=== PATIENT | female | born 1960 | race Caucasian/White ===

== ENCOUNTER 2020-04-06 17:56 | Outpatient (CLI) | payer BC, SELFPAY ==
--- NOTE | ~2020-04-06 | XR_ITS ---
EXAMINATION: XR thoracic spine 3V EXAM DATE: 04/06/2020 18:30 INDICATION: Chronic back pain. TECHNIQUE: Frontal and lateral projections of the thoracic spine as well as lateral swimmers projecti on of the upper thoracic spine for interpretation. There is no prior study for comparison. FINDINGS: There is mild thoracic spondylosis. Minimal mid thoracic dextrocurvature. The vertebral bod ies are aligned in the AP dimension. There are no bony erosions identified. Paraspinal soft tissue is unremarkable. IMPRESSION: Mild thoracic spondylosis. Reviewed, dictated and finalized at location A. IMPRESSION: Mild thoracic spondylosis.
--- NOTE | ~2020-04-06 | XR_ITS ---
EXAMINATION: XR lumbar spine 2-3V EXAM DATE: 04/06/2020 18:30 INDICATION: Chronic low back pain. TECHNIQUE: Lumber spine frontal, lateral, lateral L5-S1 projections for interpretation. There is no prior study for comparison. FINDINGS: There is mild lumbar dextrocurvature, positional versus mild scoliosis. There is about 5 m m anterolisthesis L5 on S1 without spondylolysis suspected. There is mild to moderate lumbar facet ar thropathy. The vertebral bodies are otherwise aligned. Mild disc disease at L1-2. Sacrum, sacroiliac joints, sacral arcuate lines are intact. Paraspinal soft tissue is unremarkable. IMPRESSION: 1. L5-S1 grade 1 anterolisthesis. 2. Mild to moderate facet arthropathy. 3. Mild dextrocurvature, could be scoliosis. Reviewed, dictated and finalized at location A.
== END 2020-04-06 17:57 | disposition home or self-care (01) ==
PROVIDERS: PCP Nurse Practitioner Family; Visit Provider Nurse Practitioner Family
DX: G89.29 Other chronic pain (principal); M43.17 Spondylolisthesis, lumbosacral region; M47.897 Other spondylosis, lumbosacral region; M47.815 Spondylosis without myelopathy or radiculopathy, thoracolumbar region
CPT/HCPCS: 72072; 72100

== ENCOUNTER 2020-04-23 04:32 | Emergency (ER) | payer BC, SELFPAY ==
--- NOTE | ~2020-04-23 | CT_ITS ---
EXAMINATION: CT thoracic spine wo con EXAM DATE: 04/23/2020 06:32 INDICATION: Syncope, fall, back pain . TECHNIQUE: Spiral CT thoracic spine wo con was performed thoracic spine Axial, coronal and sagittal images were reviewed. The dose-length product (DLP) for this examination was 1022.03 mGy-cm. The ex posure was tailored according to patient size (auto mA exposure control), and iterative reconstructio n (ASIR) was used as additional dose reduction technique. Correlation is made to thoracic x-ray 04/06. FINDINGS: There is mild thoracic disc disease. Mild loss of mid and lower thoracic vertebral body hei ghts without acute fracture line. Mild thoracic facet arthropathy. No evidence of significant central canal stenosis. Moderate to severe left neural foraminal stenosis at T7-8. Otherwise no more than mi ld to moderate thoracic neural foraminal stenosis. 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 Splenule. IMPRESSION: Mild thoracic spondylosis. Reviewed, dictated and finalized at location A. PRESIDENT QUALITY ASSURANCE IMPRESSION: Mild thoracic spondylosis.
--- NOTE | ~2020-04-23 | XR_ITS ---
EXAMINATION: XR chest 2V EXAM DATE: 04/23/2020 06:29 INDICATION: Syncope. TECHNIQUE: Frontal and lateral projections of the chest obtained and reviewed. Comparison is made to prior examination from 12/29/2018. FINDINGS: The lungs are clear. There are no pleural effusions. The cardiomediastinal silhouette is within normal limits. There is no pneumothorax suspected. The bones and soft tissues are unremarkab le. IMPRESSION: No acute cardiopulmonary findings. Reviewed, dictated and finalized at location A. YPOP MACHINE OPERATOR
--- NOTE | ~2020-04-23 | CT_ITS ---
EXAMINATION: CTA chest PE protocol DATE: 04/23/2020 07:57 INDICATION: Syncope. TECHNIQUE: Computed tomography angiography (CTA) of the chest was performed with 100 mL Omnipaque-350 intravenous contrast timed to evaluate the pulmonary arteries. Coronal maximum intensity projection 3D-reconstructions were created by the technologist. Automated exposure control and iterative reconst ruction technique were employed. The dose-length product was 287.62 mGy-cm. COMPARISON: Chest 2 views 04/23/2020 FINDINGS: The lungs demonstrate mild atelectasis. There are a few scattered nodules measuring up to 3 mm, likely benign. No pleural effusion. There is an aberrant right subclavian artery. The heart size is normal. There are coronary artery calcifications. No pericardial effusion. There is no pulmonary embolus. There is mild thoracic spondylosis. IMPRESSION: 1. No pulmonary embolus. Reviewed, dictated and finalized at location B. MAKING REHABILITATION CONSULTANT IMPRESSION: 1. No pulmonary embolus.
--- NOTE | ~2020-04-23 | CT_ITS ---
EXAMINATION: CT brain wo con, CT cervical spine wo con EXAM DATE: 04/23/2020 06:31 (accession [id number]), 04/23/2020 06:32 (accession [id number]) INDICATION: Syncope, weakness . Neck and back pain. TECHNIQUE: Spiral CT of the head was performed without contrast. Axial, coronal and sagittal images were reviewed. Spiral CT of the cervical spine was performed without contrast. Axial images were rev iewed. Coronal and sagittal reformatted images were also reviewed. The dose-length product (DLP) fo r this examination was 605.33 (accession [id number]), 222.02 (accession [id number]) mGy-cm. The exposure was tailored according to patient size, and iterative reconstruction (ASIR) was used as additional dose reduction technique. Comparison is made to prior examination from 10/29/2014. FINDINGS: HEAD CT: There is no acute intraparenchymal hemorrhage. No evidence of intraparenchymal brain mass l esion. No evidence of acute infarction. There is no mass effect or midline shift. There is no obstru ctive hydrocephalus suspected. There are no extra-axial collections. There are no acute calvarial f ractures. The orbits are unremarkable. Soft tissue is unremarkable. The visualized sinuses and mas toid air cells are well aerated. CERVICAL CT: There is no evidence of acute cervical fracture. The odontoid process is intact. Pre- dens space is normal. Prevertebral soft tissue is normal. There are no soft tissue abnormalities id entified. There is no disc space widening or traumatic vertebral body subluxation suspected. There is mild to moderate cervical spondylosis. A detailed level by level evaluation of spondylosis can be added as addendum if requested. IMPRESSION: 1. No acute intracranial findings or cervical fracture. Reviewed, dictated and finalized at location A. PHONE ORDER CLERK ROOM SERVICE IMPRESSION: 1. No acute intracranial findings or cervical fracture.
[2020-04-23 04:35] VITALS: BP 110/56; PULSE 82; RESP 18; TEMP 36.1; O2SAT 100
--- NOTE | 2020-04-23 04:52 | ED.SYNCOPE ---
HPI - Syncope General Chief Complaint: Syncope <Mariza Mora MD - Last Filed: 04/23/20 07:23> Stated Complaint: passed out <Mariza Mora MD - Last Filed: 04/23/20 07:23> Time Seen by Provider: 04/23/20 04:52 <Mariza Mora MD - Last Filed: 04/23/20 07:23> Source: patient <Mariza Mora MD - Last Filed: 04/23/20 07:23> Mode of arrival: wheelchair <Mariza Mora MD - Last Filed: 04/23/20 07:23> Limitations: no limitations <Mariza Mora MD - Last Filed: 04/23/20 07:23> History of Present Illness HPI narrative: Patient is a 60-year-old female with a history of hypertension, hypothyroidism who presents for evaluation of syncopal events. Patient states that she was walking through a bedroom door when she suddenly felt quite lightheaded, dizzy and weak. Patient then fell backwards into the door. She denies hitting her head, she states she may have lost consciousness. She states her helped her get up, she tried to walk again and then passed out again into the hallway. No seizure-like activity. No urinary incontinence or tongue biting. Patient was not confused when she awakened. Patient states she feels diffusely weak without any focal weakness or numbness. She denies any associated chest pain or shortness of breath. She reports she has been congested with a dry cough over the course of the week and has been generally feeling unwell. No history of syncope in the past. No recent medication changes. She is denying any neck pain, she does report middle back pain. <Mariza Mora MD - Last Filed: 04/23/20 07:23> Related Data Home Medications: Home Medications Medication Instructions Recorded Confirmed atorvastatin 04/23/20 clonidine HCl 04/23/20 diclofenac sodium PO 04/23/20 furosemide 04/23/20 levothyroxine 04/23/20 levothyroxine [Euthyrox] 04/23/20 lisinopril 04/23/20 meloxicam 04/23/20 metformin mg 04/23/20 omeprazole 04/23/20 <Mariza Mora MD - Last Filed: 04/23/20 07:23> Allergies/Adverse Reactions: Allergies Allergy/AdvReac Type Severity Reaction Status Date / Time No Known Allergies Allergy Unverified 04/23/20 04:39 <Mariza Mora MD - Last Filed: 04/23/20 07:23> Review of Systems Review of Systems: Narrative: CONSTITUTIONAL: Denies fever, chills, or sweats. EYES: Denies visual changes, redness, or discharge. ENT: Reports rhinorrhea and congestion CARDIOVASCULAR: Denies chest pain, palpitations, or edema. RESPIRATORY: Denies cough or dyspnea. GASTROINTESTINAL: Denies abdominal pain, nausea, vomiting, or diarrhea. GENITOURINARY: Denies dysuria or hematuria. SKIN: Denies rash or itching. MUSCULOSKELETAL: Reports middle back pain NEUROLOGIC: Denies headache, numbness, or weakness. <Mariza Mora MD - Last Filed: 04/23/20 07:23> [facility] Past Medical History Medical History: Medical History Hyperlipidemia Hypertension Hypothyroidism Parotid tumor Sciatica <Mariza Mora MD - Last Filed: 04/23/20 07:23> Social History Social History: Social History (Updated 04/23/20 @ 05:13 by Mariza Mora MD) Smoking status: Never smoker Alcohol intake: never Substance use: never Living arrangements: with family Gender identity (if verbalized by the patient): Female Sexual Orientation (if Verbalized by the Patient): Straight or Heterosexual <Mariza Mora MD - Last Filed: 04/23/20 07:23> Exam Narrative: Exam Narrative: GENERAL: Awake, alert, conversant HEAD: Normocephalic, atraumatic. EYES: PERRLA and EOMI. ENT: Nares clear, no rhinorrhea or epistaxis. Mucous membranes moist. NECK: Supple. CHEST: No respiratory distress, breathing even and non labored HEART: Regular rate, sinus rhythm ABDOMEN:Non distended, non tender EXTREMITIES: Normal range of motion. No edema. SKIN: Warm, dry, no rash. NEURO:No
--- NOTE | 2020-04-23 05:05 | ECG_ITS ---
Measurements Intervals [place] Rate: 80 P: 40 ME: 144 QRS: 10 QRSD: 74 T: 34 QT: 375 QTc: 434 Interpretive Statements SINUS RHYTHM LOW QRS VOLTAGE IN PRECORDIAL LEADS BORDERLINE T WAVE ABNORMALITY- ANTERIOR LEADS BASELINE ARTIFACT- I, II, III, AVR, AVL, AVF, V1, V5 BORDERLINE ECG Electronically Signed On 04-23-2020 8:49:30 BLOCK SORTER by Mac Escamilla D.O.
[2020-04-23 05:09] LABS: Glucose Point of Care 134 (65-105)
[2020-04-23] MEDS: SODIUM CHLORIDE 0.9% IV 1,000 ML 999 ML IV CONT (05:27)
[2020-04-23 05:46] LABS: Basophils Percent Auto 0.5 % (0.2-1.2); Eosinophils Absolute Auto 0.7 K/mm3 (0-0.3); Eosinophils Percent Auto 12.5 % (0-4.4); Hematocrit 37.2 % (37.0-47.0); Hemoglobin 12.1 g/dL (12.0-15.0); Immature Granulocyte Absolute 0.09 K/mm3 (0.00-0.031); Immature Granulocyte Percent A 1.6 % (0-0.5); Lymphocytes Absolute Auto 1.28 K/mm3 (0.9-3.2); Lymphocytes Percent Auto 22.6 % (18.3-44.2); Mean Corpuscular HGB Conc 32.5 g/dl (32-36); Mean Corpuscular Hemoglobin 28.2 pg (26-34); Mean Corpuscular Volume 86.7 fl (80-100); Mean Platelet Volume 10.1 fl (7.4-10.4); Monocytes Absolute Auto 0.6 K/mm3 (0.1-0.6); Monocytes Percent Auto 10.6 % (2.6-8.5); Neutrophils Percent Auto 52.2 % (45.5-73.1); Platelet Count Result 190 k/mm3 (150-375); Red Blood Count 4.29 M/mm3 (4.2-5.4); Red Cell Distribution Width 13.5 % (11.5-14.5); White Blood Count 5.7 K/mm3 (4.5-10.0)
[2020-04-23 05:57] LABS: Anion Gap 8 mmol/L (8-16); Blood Urea Nitrogen 21 mg/dL (7-17); Carbon Dioxide 29 mmol/L (22-30); Chloride 101 mmol/L (98-107); Estimated CRCL calculation 58 ml/min; Estimated Glomerular Filt Rate > 60; Glucose 140 mg/dL (65-105); Potassium 4.3 mmol/L (3.4-5.0); Sodium 138 mmol/L (137-145)
[2020-04-23 06:00] LABS: INR 0.9; Prothrombin Time 12.5 Seconds (11.1-14.7)
[2020-04-23 06:01] LABS: Partial Thromboplastin Time 26.3 SECONDS (22.3-36.8)
[2020-04-23 06:03] LABS: D Dimer 0.69 ug/mL (<0.48)
[2020-04-23 06:09] LABS: NT Pro B Type Natriuretic Pept 74 PG/ML (5-100); Troponin I < 0.012 ng/mL (0.000-0.034)
[2020-04-23 06:26] LABS: Add Urine Microscopic? NO; Appearance Urine Clear (Clear); Bilirubin Urine Negative (Negative); Blood Urine Negative (Negative); Color Urine Straw (Yellow); Glucose Urine UA Negative (Negative); Ketones Urine Negative (Negative); Leukocyte Esterase Ur Negative LEU/UL (Negative); Nitrate Urine Negative (Negative); Protein Urine Negative (Negative); Specific Grav Ur 1.013 (1.001-1.035); Urobilinogen Urine Negative mg/dL (<2.0)
--- NOTE | 2020-04-23 07:30 | PC.NURSE ---
Pt wheeled to restroom by . Xray here to take pt.
[2020-04-23 07:53] VITALS: BP 115/67; PULSE 78; RESP 17; O2SAT 100
[2020-04-23 08:59] LABS: Troponin I < 0.012 ng/mL (0.000-0.034)
== END 2020-04-23 10:33 | disposition home or self-care (01) ==
PROVIDERS: Emergency Medicine; Emergency Provider Emergency Medicine; PCP Nurse Practitioner Family
DX: R55 Syncope and collapse (principal); I10 Essential (primary) hypertension; E03.9 Hypothyroidism, unspecified; E78.5 Hyperlipidemia, unspecified; M47.814 Spondylosis without myelopathy or radiculopathy, thoracic region
CPT/HCPCS: 36415; 70450; 71046; 71275; 72125; 72128; 80048; 81003; 82948; 83880; 84443; 84484; 85025; 85380; 85610; 85730; 93005; 96360; 96361; 99284; J7030; Q9967

== ENCOUNTER 2020-05-19 08:17 | Outpatient (CLI) | payer BC, SELFPAY ==
--- NOTE | ~2020-05-19 | MR_ITS ---
EXAMINATION: MR lumbar spine wo con DATE: 05/19/2020 10:49 INDICATION: Chronic back pain TECHNIQUE: Magnetic resonance imaging (MRI) of the lumbar spine was performed without intravenous con trast. Sequences included sagittal T2-weighted FSE, sagittal T2-weighted FS FSE, sagittal T1-weighted FSE, and axial T2-weighted FSE. COMPARISON: Lumbar spine radiographs dated 04/06/2020 FINDINGS: S1 is partially lumbarized on the right. Approximately 15 degrees thoracolumbar dextroscoliosis. 5 mm anterolisthesis L5 on S1. Chronic mild anterior wedging at T11 and T12 with 20% anterior vertebral b brady height loss. Small Schmorl's node along the inferior endplate of T11. Lumbar vertebral body heigh ts are normal. Mild fibrovascular degenerative endplate changes at the inferior aspect of T12. Marrow signal is otherwise normal. Mild disc height loss at T10-T11, T11-T12 and L5-S1. The conus medullari s terminates at L1-L2. There is normal signal in the caudal spinal cord. Paravertebral soft tissues a re unremarkable. The following disc levels are specifically discussed: T12-L1: The disc does not extend beyond the endplate margin. There is mild bilateral facet joint oste oarthritis. There is no neural foraminal stenosis. There is no central canal stenosis. L1-L2: The disc does not extend beyond the endplate margin. There is mild bilateral facet joint osteo arthritis. There is no neural foraminal stenosis. There is no central canal stenosis. L2-L3: Very small right subarticular zone disc protrusion. There is mild bilateral facet joint osteoa rthritis. There is minimal bilateral neural foraminal stenosis. There is minimal central canal stenos is. L3-L4: The disc does not extend beyond the endplate margin. There is mild bilateral facet joint osteo arthritis. There is no neural foraminal stenosis. There is no central canal stenosis. L4-L5: The disc does not extend beyond the endplate margin. There is moderate bilateral facet joint o steoarthritis. There is mild bilateral neural foraminal stenosis. There is no central canal stenosis. L5-S1: Disc is bulging. There is severe bilateral facet joint osteoarthritis. There is mild bilateral neural foraminal stenosis. There is mild central canal stenosis with mild stenosis at the left and r ight lateral recesses. IMPRESSION: 1. Mild thoracolumbar dextroscoliosis. 2. Mild to moderate lumbar spondylosis with 5 mm anterolisthesis L5 on S1. Reviewed, dictated and finalized at location A. AL SECURITY SPECIALIST
--- NOTE | ~2020-05-19 | DEXA_ITS ---
Bone Density Report Name: Ying Colvin Age: 60 Sex: Female Ethnicity: White Date of : 1960 Indication: postmenopausal; parental hip fracture; prior fracture; Referring Provider: Daniel, Syliva Medrano Study: Bone densitometry was performed. Exam Date: May 19, 2020 Accession number: [id number] Bone Density: Region BMD T-score Z-score Classification AP Spine (L1-L4) 0.910 -1.2 0.1 Osteopenia Femoral Neck (Left) 0.599 -2.3 -1.0 Osteopenia Total Hip (Left) 0.781 -1.3 -0.4 Osteopenia Total Hip Bilateral Avg 0.784 -1.3 -0.4 Osteopenia Femoral Neck (Right) 0.666 -1.6 -0.4 Osteopenia Total Hip (Right) 0.785 -1.3 -0.4 Osteopenia World Health Organization criteria for BMD impression classify patients as: Normal (T-score at or above -1.0), Osteopenia (T-score between -1.0 and -2.5), or Osteoporosis (T-score at or below -2.5). 10-year Fracture Risk: FRAX not reported because: Prior hip or vertebral fracture Clinical Information Provided by Patient: Have had a previous hip or vertebral fracture Has had a low trauma fracture Parent has had a hip fracture Has used the following medications: Vitamin D, Calcium Patient maximum height was 60 Menopause Age: 57 No regular weight bearing exercise Onset of menses at age 14 Number of children 0 Impression: The patient has low bone mass, based on the Left Femoral Neck T-score. The patient has risk factors, including: parental hip fracture, previous fracture. Discussion: INCREASED RISK OF FRACTURE DUE TO HISTORY OF FRACTURE. The patient's previous fracture puts the patient at high risk of a future fracture. In untreated patients, the risk of osteoporotic fracture increases approximately two-fold for each 1.0 SD decrease in T-score. Low bone density is not the only risk factor for fracture; also consider factors such as patient's age, frailty or poor health, risk of falling, risk of injury, previous osteoporotic fracture, family history of osteoporosis, cigarette smoking, low body weight, etc. Not everyone with a low trauma fracture has osteoporosis; osteomalacia and other metabolic bone disorders should also be considered. Patients who have osteoporosis should be evaluated for specific diseases and conditions (secondary causes) that may cause or contribute to bone loss and fracture risk. National Osteoporosis Foundation (NOF) recommends pharmacologic intervention for patients with a prior hip or vertebral fracture regardless of BMD T-score. The patient should follow a healthful lifestyle (good nutrition with adequate calcium and vitamin D, and appropriate weight-bearing exercise). Follow-Up: Consider a repeat BMD and Vertebral Fracture Assessment (VFA) exam in 2 years or sooner if medically necessary, to reassess this patient's status. Reported by: PAULO on 05/19/2020 8:48:00 AM.
--- NOTE | ~2020-05-19 | MM_ITS ---
EXAMINATION: MM screening wilson BI w pako HISTORY: Screening TECHNIQUE: Craniocaudal and mediolateral oblique 3-D tomosynthesis images were obtained and synthetic 2-D images were generated. CAD analysis was submitted and interpreted. COMPARISON: Comparison to multiple prior studies sequentially, with oldest reviewed study dated 05/16. BREAST PARENCHYMAL COMPOSITION: There are scattered areas of fibroglandular density. FINDINGS: There is a developing cluster of calcifications lower central aspect of the left breast, mi ddle third of the breast. There is no evidence of suspicious mass, calcification, or architectural di stortion to suggest malignancy in the right breast. There has been no suspicious interval change. IMPRESSION: 1. Clustered punctate calcifications lower central left breast. 2. Magnification views are recommended. BI-RADS Category 0: Incomplete: Needs additional imaging evaluation. Reviewed, dictated and finalized at location A. TICS ENGINEERING TEACHER
== END 2020-05-19 08:18 | disposition home or self-care (01) ==
PROVIDERS: PCP Nurse Practitioner Family; Visit Provider Nurse Practitioner Family
DX: Z12.31 Encounter for screening mammogram for malignant neoplasm of breast (principal); E55.9 Vitamin D deficiency, unspecified; M54.9 Dorsalgia, unspecified; M47.817 Spondylosis without myelopathy or radiculopathy, lumbosacral region; M48.07 Spinal stenosis, lumbosacral region; M47.815 Spondylosis without myelopathy or radiculopathy, thoracolumbar region; M48.05 Spinal stenosis, thoracolumbar region; M41.9 Scoliosis, unspecified; R92.8 Other abnormal and inconclusive findings on diagnostic imaging of breast; M85.852 Other specified disorders of bone density and structure, left thigh; M85.851 Other specified disorders of bone density and structure, right thigh
CPT/HCPCS: 72148; 77063; 77067; 77080

== ENCOUNTER 2020-07-03 13:48 | Outpatient (CLI) | payer BC, SELFPAY ==
--- NOTE | ~2020-07-03 | MM_ITS ---
EXAMINATION: MM diagnostic mammo unilat LT HISTORY: Clustered punctate calcifications reported at lower central left breast on 05/19/2020 screeni ng mammogram TECHNIQUE: Additional 3-D ML tomosynthesis images of the breasts were performed and synthetic 2-D sadaf ges were generated. Magnification views of the left breast. CAD analysis was submitted and interprete d. COMPARISON: 05/19/2020bilateral digital screening mammogram 07/11/2016 diagnostic left digital mammogram 06/06/2016 bilateral digital screening mammogram FINDINGS: Subtle microcalcifications are noted in the inner aspect of the lower outer quadrant of the left breast. Similar very subtle microcalcifications are present in retrospect on the 06/06/2016 lef t digital mammogram. As a precaution, ultrasound of the lower outer quadrant left breast is recommend ed to exclude any mass. IMPRESSION: 1. Subtle microcalcifications in the inner aspect of lower outer left breast, largely stable since 2. As a precaution, lower outer quadrant left breast ultrasound correlation is recommended. BI-RADS Category 0: Incomplete: Needs additional imaging evaluation. Reviewed, dictated and finalized at location A. SERVICER IMPRESSION: 1. Subtle microcalcifications in the inner aspect of lower outer left breast, l argely stable since 06/06/2016 2. As a precaution, lower outer quadrant left breast ultrasound correlation is recommended. BI-RADS Category 0: Incomplete: Needs additional imaging evaluation.
== END 2020-07-03 13:49 | disposition home or self-care (01) ==
PROVIDERS: PCP Nurse Practitioner Family; Visit Provider Nurse Practitioner Family
DX: R92.8 Other abnormal and inconclusive findings on diagnostic imaging of breast (principal)
CPT/HCPCS: 77065

== ENCOUNTER 2020-07-17 14:00 | Outpatient (CLI) | payer BC, SELFPAY ==
--- NOTE | ~2020-07-17 | US_ITS ---
EXAMINATION: US breast LT limited HISTORY: Assess for mass associated with left breast calcifications TECHNIQUE: Limited left breast ultrasound is performed. FINDINGS: There is no evidence of focal abnormal cystic or solid mass in the vicinity of the mammogra phic finding in question. IMPRESSION: No specific sonographic correlate is identified for the finding in question on recent mammogram. Rout ine screening mammography is recommended. BI-RADS Category 1: Negative Reviewed, dictated and finalized at location A. ET TURNER IMPRESSION: No specific sonographic correlate is identified for the finding in question on recent mammogram. Routine screening mammography is recommended. BI-RADS Category 1: Negative
== END 2020-07-17 14:01 | disposition home or self-care (01) ==
LOC: ANHIMG 14:08
PROVIDERS: PCP Nurse Practitioner Family; Visit Provider Nurse Practitioner Family
DX: R92.8 Other abnormal and inconclusive findings on diagnostic imaging of breast (principal)
CPT/HCPCS: 76642